=== PATIENT | male | born 1945 | race Caucasian/White ===

== ENCOUNTER → 2019-08-12 11:26 | Outpatient (CLI) | payer MEDICARE, SELFPAY ==
[2019-08-12 11:56] LABS: Hematocrit 44.2 % (41-53); Hemoglobin 14.7 g/dL (13.5-17.5)
== END ==
PROVIDERS: Visit Provider Physician Assistant
DX: K62.5 Hemorrhage of anus and rectum (principal)
CPT/HCPCS: 36415; 85014; 85018